=== PATIENT | female | born 1955 | race African-American/Black ===

== ENCOUNTER 2017-10-08 08:11 | Emergency (ER) | payer MEDICAID | END 2017-10-08 09:02 | disposition home or self-care (01) | LOC: D.ER 08:11 | DX: I10 Essential (primary) hypertension (principal); F17.200 Nicotine dependence, unspecified, uncomplicated ==

== ENCOUNTER 2018-12-12 15:47 | Emergency (ER) | payer SELFPAY ==
[~2018-12-12] VITALS: Ht 160 cm; Wt 87.3 kg
[2018-12-12 15:49] VITALS: Ht 160 cm; Wt 87.3 kg
[2018-12-12] MEDS ORDERED: GLUCOPHAGE1000 MG PO (15:52)
[2018-12-12] MEDS ORDERED: DIOVAN160 MG PO (15:52)
[2018-12-12 16:19] LABS: BASOPHILS 0.3 % (0-2); EOSINOPHILS 0.8 % (0-7); HEMATOCRIT 47.3 % (36.0-48.0); HEMOGLOBIN 16.4 g/dL (12-16); IMMATURE GRANULOCYTES 0.3 % (0-5); LYMPHOCYTES 20.2 % (15-50); MCH 29.2 pg (26.0-34.0); MCHC 34.7 g/dL (31.0-37.0); MCV 84.3 fL (80.0-100.0); MEAN PLATELET VOLUME 10.5 fL (7.4-10.4); MONOCYTES 8.6 % (2-11); NEUTROPHILS 69.8 % (40-80); RBC 5.61 10x6/uL (4.00-5.40); RDW 14.5 % (11.5-14.5); WBC 10.1 10x3/uL (4.8-10.8)
[2018-12-12 16:20] LABS: PLATELET COUNT 145 10x3/uL (130-400)
--- NOTE | 2018-12-12 16:20 | NUR ---
DEANGELO RODRIGUEZ NOTIFIED AND REVIEWED PT'S BEHAVIOR AND ASSESSMENT RESULTS. PT IS A LOW RISK PER DR. BRIGHT. DR. BRIGHT STATED TO GIVE RESOURCES TO PT AT TIME OF DISCHARGE. NO FURTHER ORDERS AT THIS TIME. RESOURCES REVIEWED WITH PT AND SHE VERBALIZED UNDERSTANDING.
[2018-12-12 16:33] LABS: ALBUMIN 3.5 g/dL (3.4-5.0); ALKALINE PHOSPHATASE 118 U/L (46-116); ALT (SGPT) 17 U/L (10-68); BILIRUBIN - TOTAL 0.47 mg/dL (0.2-1.3); CALC OSMOLALITY 274 mosm/kg (275-300); CALCIUM 8.7 mg/dL (8.5-10.1); CARBON DIOXIDE 25.1 mmol/L (21.0-32.0); CHLORIDE - SERUM 104 mmol/L (98-107); CREATININE - SERUM 0.9 mg/dL (0.6-1.3); POTASSIUM - SERUM 3.4 mmol/L (3.5-5.1); PROTEIN - SERUM 8.1 g/dL (6.4-8.2); SODIUM 138 mmol/L (136-145); UREA NITROGEN 8 mg/dL (7-18); eGFR NON AFRICAN AMERICAN 67 mL/min (90-120)
[2018-12-12 16:35] LABS: GLUCOSE 118 mg/dL (74-106)
[2018-12-12 16:37] LABS: AMYLASE - SERUM 41 U/L (25-115); LIPASE 136 U/L (73-393)
[2018-12-12 16:42] LABS: TROPONIN-I < 0.017 ng/mL (0.000-0.060)
[2018-12-12] MEDS ORDERED: ZOFRAN8 MG PO (19:02)
[2018-12-12] MEDS ORDERED: TORADOL10 MG PO (19:03)
[2018-12-12 19:17] VITALS: BP 141/94
[2018-12-12 19:31] LABS: APPEARANCE CLEAR (CLEAR); BILIRUBIN NEGATIVE (NEGATIVE); COLOR YELLOW (YELLOW); GLUCOSE NEGATIVE (NEGATIVE); KETONE NEGATIVE (NEGATIVE); NITRITE NEGATIVE (NEGATIVE); PROTEIN NEGATIVE (NEGATIVE); UROBILINOGEN NORMAL (NORMAL)
== END 2018-12-12 19:17 | disposition home or self-care (01) ==
LOC: D.ER 15:47
PROVIDERS: Family Medicine
DX: I88.0 Nonspecific mesenteric lymphadenitis (principal); K52.9 Noninfective gastroenteritis and colitis, unspecified; E27.9 Disorder of adrenal gland, unspecified; E11.9 Type 2 diabetes mellitus without complications; I10 Essential (primary) hypertension